=== PATIENT | female | born 1945 | race Two or more races ===

== ENCOUNTER 2019-05-29 18:02 | Inpatient (IN) | payer BC, MEDICARE ==
[~2019-05-29] VITALS: Ht 160 cm; Wt 93.4 kg
[~2019-05-29 18:02] MED LIST: ATOR20TA PO; CAPT1TAB7 PO; GLIP10TA10 PO; METF-414 PO
[2019-05-29] MEDS ORDERED: SODIUM CHLORIDE 0.9% 1,000 ML IV ONE (18:10)
[2019-05-29 18:36] LABS: BASOPHILS % 0.4 % (0.0-2.0); EOSINOPHILS % 0.5 % (0.0-5.0); HEMATOCRIT. 34.8 % (36.0-48.0); HEMOGLOBIN. 11.9 g/dL (12.0-16.0); LYMPHOCYTES % 17.2 % (20.0-50.0); MEAN CORPUSCULAR HEMOGLOBIN 26.3 pg (28.0-32.0); MEAN PLATELET VOLUME 9.4 fl (7.4-10.4); MONOCYTES % 14.1 % (2.0-8.0); NEUTROPHILS % 67.8 % (40.0-76.0); PLATELET 146 x1000/uL (130-400); RED BLOOD CELL COUNT 4.52 mill/uL (4.2-5.4); RED CELL DISTRIBUTION WIDTH 13.9 % (11.6-14.6)
[2019-05-29 18:44] LABS: CHLORIDE 91 mEq/L (98-107)
[2019-05-29 18:50] LABS: INR 1.1; PARTIAL THROMBOPLASTIN TIME 28.7 sec (23.4-31.0); PROTHROMBIN TIME 10.9 sec (9.6-11.0)
[2019-05-29 18:51] LABS: ETHANOL BLOOD < 10 mg/dL
[2019-05-29 18:54] LABS: LDL CHOLESTEROL 128 mg/dL (5-100)
[2019-05-29] MEDS ORDERED: ATORVASTATIN CALCIUM 40MG TABLET PO STA (20:13)
[2019-05-29] MEDS ORDERED: ASPIRIN 81MG TABLET PO ONE ×2 (20:15→22:12)
[2019-05-29] MEDS ORDERED: IOHEXOL-350 100 ML BOTTLE ONE (21:18)
[2019-05-29] MEDS ORDERED: DOCUSATE SODIUM 100MG CAPSULE PO PRN (22:30)
[2019-05-29] MEDS ORDERED: NITROGLYCERIN 0.4MG TABLET SL SL PRN (22:30)
[2019-05-29] MEDS ORDERED: MAGNESIUM/ALUMINUM HYDROXIDE/SIMETHICONE 30ML UDC PO PRN (22:30)
[2019-05-29] MEDS ORDERED: CLONIDINE 0.1MG TABLET PO PRN (22:30)
[2019-05-29] MEDS ORDERED: ACETAMINOPHEN 325MG TABLET PO PRN (22:30)
[2019-05-29] MEDS ORDERED: IPRATROPIUM/ALBUTEROL 0.5-3(2.5)MG/3ML NEB NEB PRN (22:30)
[2019-05-29] MEDS ORDERED: GUAIFENESIN 200MG/10ML SUGAR FREE UDC PO PRN (22:30)
[2019-05-29] MEDS ORDERED: DEXTROSE 50% WATER 50ML SYRINGE IV PRN (22:30)
[2019-05-29 23:43] LABS: T4 FREE 1.51 ng/dL (0.76-1.46)
[2019-05-29] MEDS ORDERED: POTASSIUM CHLORIDE 20MEQ TABLET SR PO SCH (23:51)
[2019-05-30 00:23] LABS: FOLIC ACID (FOLATE) SERUM 18.7 ng/mL (>5.38)
[2019-05-30] MEDS: ONDANSETRON HCL 4MG/2ML INJ IV PRN ×3 (00:36→13:37)
[2019-05-30] MEDS: TRAMADOL 50MG TABLET PO PRN ×2 (00:36→18:50)
[2019-05-30 01:30] VITALS: BP 143/45
[2019-05-30] MEDS: SODIUM CHLORIDE 0.9% 1,000 ML IV SCH ×2 (02:26→14:04)
[2019-05-30 04:00] VITALS: BP 147/67
[2019-05-30] MEDS: BLOOD SUGAR DIAGNOSTIC STRIP TEST SCH ×4 (06:14→21:00)
[2019-05-30] MEDS: INSULIN LISPRO 100 UNITS/ML SUBCUT SCH ×4 (06:27→22:30)
[2019-05-30 07:44] LABS: BASOPHILS % 0.6 % (0.0-2.0); EOSINOPHILS % 0.7 % (0.0-5.0); HEMATOCRIT. 35.2 % (36.0-48.0); HEMOGLOBIN. 12.2 g/dL (12.0-16.0); LYMPHOCYTES % 15.9 % (20.0-50.0); MEAN CORPUSCULAR HEMOGLOBIN 26.5 pg (28.0-32.0); MEAN CORPUSCULAR VOLUME 76.5 fL (81.0-99.0); MEAN PLATELET VOLUME 8.9 fl (7.4-10.4); MONOCYTES % 11.7 % (2.0-8.0); NEUTROPHILS % 71.1 % (40.0-76.0); PLATELET 142 x1000/uL (130-400); RED CELL DISTRIBUTION WIDTH 14.1 % (11.6-14.6)
[2019-05-30 07:52] LABS: CHLORIDE 92 mEq/L (98-107)
[2019-05-30 08:00] VITALS: BP 145/76
[2019-05-30 08:03] LABS: CREATINE KINASE 79 IU/L (26-192)
[2019-05-30 08:07] LABS: CREATINE KINASE MB FRACTION < 1.0 ng/mL (0.5-3.6)
[2019-05-30] MEDS ORDERED: FAMOTIDINE 20MG TABLET PO SCH (09:00)
[2019-05-30] MEDS: KETOROLAC 15MG/ML VIAL IV PRN ×2 (09:25→13:39)
[2019-05-30] MEDS: ENOXAPARIN 40MG/0.4ML SYR SUBCUT SCH (09:28)
[2019-05-30] MEDS: FAMOTIDINE 20MG TABLET PO SCH (10:13)
[2019-05-30] MEDS: CLOPIDOGREL 75MG TABLET PO SCH (10:14)
[2019-05-30] MEDS: ACYCLOVIR INJ 750 MG in DEXT 5% WATER 125 ML IV SCH ×2 (11:50→22:17)
[2019-05-30 12:00] VITALS: BP 144/54
[2019-05-30] MEDS ORDERED: PNEUMOCOCCAL 23-VAL P-SAC VAC 0.5 ML IM ONE (12:00)
[2019-05-30] MEDS: METOCLOPRAMIDE 10MG/10 ML UDC PO SCH ×3 (12:00→22:23)
[2019-05-30] MEDS ORDERED: INFLUENZA VIRUS VACCINE(AFLURIA) 0.5ML SYR IM ONE (12:00)
[2019-05-30] MEDS ORDERED: POTASSIUM CHLORIDE 20MEQ TABLET SR PO NR (15:30)
[2019-05-30 16:00] VITALS: BP 116/79
[2019-05-30 16:33] LABS: CREATINE KINASE 88 IU/L (26-192)
[2019-05-30 16:35] LABS: CREATINE KINASE MB FRACTION 1.1 ng/mL (0.5-3.6)
[2019-05-30 20:00] VITALS: BP 199/79
[2019-05-30] MEDS ORDERED: ATORVASTATIN CALCIUM 10MG TABLET PO SCH (21:00)
[2019-05-30] MEDS: AMLODIPINE 2.5MG TABLET PO SCH (22:21)
[2019-05-30] MEDS: ZOLPIDEM TARTRATE 5MG TABLET PO PRN (22:44)
[2019-05-31] VITALS: BP 147/96
[2019-05-31] MEDS: SODIUM CHLORIDE 0.9% 1,000 ML IV SCH ×2 (02:35→16:44)
[2019-05-31 04:00] VITALS: BP 129/87
[2019-05-31] MEDS: METOCLOPRAMIDE 10MG/10 ML UDC PO SCH ×4 (06:16→21:46)
[2019-05-31] MEDS: BLOOD SUGAR DIAGNOSTIC STRIP TEST SCH ×4 (06:45→21:37)
[2019-05-31 07:01] LABS: BASOPHILS % 0.5 % (0.0-2.0); EOSINOPHILS % 1.2 % (0.0-5.0); HEMATOCRIT. 33.7 % (36.0-48.0); HEMOGLOBIN. 11.5 g/dL (12.0-16.0); LYMPHOCYTES % 16.7 % (20.0-50.0); MEAN CORPUSCULAR HEMOGLOBIN 26.6 pg (28.0-32.0); MONOCYTES % 14.1 % (2.0-8.0); NEUTROPHILS % 67.5 % (40.0-76.0); RED BLOOD CELL COUNT 4.32 mill/uL (4.2-5.4); RED CELL DISTRIBUTION WIDTH 13.8 % (11.6-14.6)
[2019-05-31 07:32] LABS: CHLORIDE 95 mEq/L (98-107)
[2019-05-31 07:40] LABS: CREATINE KINASE 65 IU/L (26-192)
[2019-05-31 07:43] LABS: CREATINE KINASE MB FRACTION < 1.0 ng/mL (0.5-3.6)
[2019-05-31] MEDS: INSULIN LISPRO 100 UNITS/ML SUBCUT SCH ×4 (08:18→22:06)
[2019-05-31] MEDS: CLOPIDOGREL 75MG TABLET PO SCH (09:51)
[2019-05-31] MEDS: FAMOTIDINE 20MG TABLET PO SCH (09:52)
[2019-05-31] MEDS: AMLODIPINE 2.5MG TABLET PO SCH ×2 (09:52→21:47)
[2019-05-31] MEDS: ENOXAPARIN 40MG/0.4ML SYR SUBCUT SCH (09:53)
[2019-05-31] MEDS: ACYCLOVIR INJ 750 MG in DEXT 5% WATER 125 ML IV SCH ×2 (11:53→21:46)
[2019-05-31 12:00] VITALS: BP 111/55
[2019-05-31 13:21] LABS: PLATELET 115 x1000/uL (130-400)
[2019-05-31] MEDS ORDERED: POTASSIUM CHLORIDE 20MEQ TABLET SR PO SCH (14:30)
[2019-05-31 16:00] VITALS: BP 159/74
[2019-05-31] MEDS: ONDANSETRON HCL 4MG/2ML INJ IV PRN (16:53)
[2019-05-31 20:00] VITALS: BP 170/75
[2019-05-31] MEDS ORDERED: ATORVASTATIN CALCIUM 20MG TABLET PO SCH (21:00)
[2019-05-31] MEDS: ZOLPIDEM TARTRATE 5MG TABLET PO PRN (21:47)
[2019-06-01] VITALS: BP 137/89
[2019-06-01 04:00] VITALS: BP 139/61
[2019-06-01] MEDS: BLOOD SUGAR DIAGNOSTIC STRIP TEST SCH ×2 (06:28→12:02)
[2019-06-01] MEDS: METOCLOPRAMIDE 10MG/10 ML UDC PO SCH ×2 (06:33→11:52)
[2019-06-01] MEDS: SODIUM CHLORIDE 0.9% 1,000 ML IV SCH (06:34)
[2019-06-01] MEDS: INSULIN LISPRO 100 UNITS/ML SUBCUT SCH ×2 (06:40→12:48)
[2019-06-01] MEDS: TRAMADOL 50MG TABLET PO PRN (07:04)
[2019-06-01 07:50] LABS: CHLORIDE 97 mEq/L (98-107)
[2019-06-01 08:00] VITALS: BP 146/69
[2019-06-01 08:13] LABS: HEMATOCRIT. 31.2 % (36.0-48.0); HEMOGLOBIN. 10.9 g/dL (12.0-16.0); MEAN CORPUSCULAR HEMOGLOBIN 26.8 pg (28.0-32.0); MEAN CORPUSCULAR VOLUME 76.9 fL (81.0-99.0); MEAN PLATELET VOLUME 9.4 fl (7.4-10.4); PLATELET 131 x1000/uL (130-400); RED BLOOD CELL COUNT 4.06 mill/uL (4.2-5.4); RED CELL DISTRIBUTION WIDTH 13.6 % (11.6-14.6)
[2019-06-01] MEDS ORDERED: ENOXAPARIN 30MG/0.3ML SYR SUBCUT SCH (09:00)
[2019-06-01] MEDS: FAMOTIDINE 20MG TABLET PO SCH (09:49)
[2019-06-01] MEDS: CLOPIDOGREL 75MG TABLET PO SCH (09:50)
[2019-06-01] MEDS: AMLODIPINE 2.5MG TABLET PO SCH (09:50)
[2019-06-01] MEDS: ACYCLOVIR INJ 750 MG in DEXT 5% WATER 125 ML IV SCH (10:38)
[2019-06-01 12:00] VITALS: BP 112/58
[2019-06-01 12:52] VITALS: BP 146/69
[2019-06-01 16:40] LABS: PLATELET ESTIMATE NORMAL
== END 2019-06-01 13:28 | disposition home or self-care (01) | DRG 640 ==
LOC: ER 18:02 → SUPCPDRO 22:29 → 5WST 22:52 → ENRESERV 23:56 → 5WST 05-30 03:30
PROVIDERS: ADMIT Internal Medicine; ATTEND Internal Medicine
DX: E87.6 Hypokalemia (principal); N17.0 Acute kidney failure with tubular necrosis; G45.9 Transient cerebral ischemic attack, unspecified; E44.1 Mild protein-calorie malnutrition; E87.1 Hypo-osmolality and hyponatremia; E11.65 Type 2 diabetes mellitus with hyperglycemia; E78.5 Hyperlipidemia, unspecified; I10 Essential (primary) hypertension; R10.9 Unspecified abdominal pain; E78.00 Pure hypercholesterolemia, unspecified; I25.10 Atherosclerotic heart disease of native coronary artery without angina pectoris; M19.90 Unspecified osteoarthritis, unspecified site; Z79.4 Long term (current) use of insulin; Z86.73 Personal history of transient ischemic attack (TIA), and cerebral infarction without residual deficits; Z68.36 Body mass index [BMI] 36.0-36.9, adult; Z88.0 Allergy status to penicillin; Z90.49 Acquired absence of other specified parts of digestive tract; Z79.84 Long term (current) use of oral hypoglycemic drugs
CPT/HCPCS: 36415; 70496; 70498; 70551; 71045; 74177; 80061; 80320; 82550; 82553; 82607; 82746; 82962; 83036; 83540; 83550; 83721; 83735; 83880; 84439; 84443; 84484; 90686; 90732; 93005; 93306; 93970; 96360; 96372; 97162; 97166; 99291; A6261; C1893; J0133; J1650; J1815; J1885; J2405; J7030; J7060; J8597; Q9967; G0480

== ENCOUNTER 2019-06-04 13:43 | Inpatient (IN) | payer BC, MEDICARE ==
[~2019-06-04] VITALS: Ht 162.6 cm; Wt 75.0 kg
[2019-06-04] MEDS ORDERED: HYDROCODONE/ACETAMINOPHEN 5/325MG TABLET PO STA (15:02)
[2019-06-04] MEDS ORDERED: VALACYCLOVIR HCL 500MG TABLET PO STA (15:02)
[2019-06-04 15:19] LABS: CHLORIDE 95 mEq/L (98-107)
[2019-06-04 15:20] LABS: BASOPHILS % 0.8 % (0.0-2.0); EOSINOPHILS % 0.1 % (0.0-5.0); HEMATOCRIT. 35.5 % (36.0-48.0); HEMOGLOBIN. 12.3 g/dL (12.0-16.0); LYMPHOCYTES % 24.6 % (20.0-50.0); MEAN CORPUSCULAR HEMOGLOBIN 26.6 pg (28.0-32.0); MEAN PLATELET VOLUME 8.7 fl (7.4-10.4); MONOCYTES % 8.5 % (2.0-8.0); PLATELET 207 x1000/uL (130-400); RED BLOOD CELL COUNT 4.61 mill/uL (4.2-5.4); RED CELL DISTRIBUTION WIDTH 13.5 % (11.6-14.6)
[2019-06-04 16:36] LABS: CLARITY URINE TURBID (CLEAR); COLOR URINE YELLOW (YELLOW); KETONES URINE 1+ (NEGATIVE); LEUKOCYTE ESTERASE URINE 3+ (NEGATIVE); NITRITE URINE NEGATIVE (NEGATIVE); OCCULT BLOOD URINE TRACE (NEGATIVE); PROTEIN URINE 1+ (NEGATIVE); SPECIFIC GRAVITY URINE 1.008 (1.005-1.030); UROBILINOGEN URINE 0.2 E.U./dL (0.2-1.0)
[2019-06-04] MEDS ORDERED: LEVOFLOXACIN 750MG PREMIX 150 ML IV ONE (17:45)
[2019-06-04] MEDS ORDERED: MAGNESIUM/ALUMINUM HYDROXIDE/SIMETHICONE 30ML UDC PO PRN (19:30)
[2019-06-04] MEDS ORDERED: IPRATROPIUM/ALBUTEROL 0.5-3(2.5)MG/3ML NEB NEB PRN (19:30)
[2019-06-04] MEDS ORDERED: DEXTROSE 50% WATER 50ML SYRINGE IV PRN (19:30)
[2019-06-04] MEDS ORDERED: GUAIFENESIN 200MG/10ML SUGAR FREE UDC PO PRN (19:30)
[2019-06-04] MEDS ORDERED: DOCUSATE SODIUM 100MG CAPSULE PO PRN (19:30)
[2019-06-04] MEDS ORDERED: NITROGLYCERIN 0.4MG TABLET SL SL PRN (19:30)
[2019-06-04] MEDS: SODIUM CHLORIDE 0.9% 1,000 ML IV SCH (19:31)
[2019-06-04] MEDS: INSULIN LISPRO 100 UNITS/ML SUBCUT SCH (21:00)
[2019-06-04] MEDS: BLOOD SUGAR DIAGNOSTIC STRIP TEST SCH (21:00)
[2019-06-04] MEDS ORDERED: VALACYCLOVIR HCL 500MG TABLET PO SCH (22:00)
[2019-06-04] MEDS: ONDANSETRON HCL 4MG/2ML INJ IV PRN (23:19)
[2019-06-04] MEDS: TRAMADOL 50MG TABLET PO PRN (23:20)
[2019-06-04] MEDS: SUCRALFATE 1 G/10 ML UDC PO SCH (23:37)
[2019-06-05] VITALS (7 sets, daily range): BP systolic 138–178; BP diastolic 61–79
[2019-06-05] MEDS: VANCOMYCIN 1 G PREMIX 200 ML IV SCH (01:44)
[2019-06-05] MEDS: VALACYCLOVIR HCL 500MG TABLET PO SCH ×2 (06:00→13:16)
[2019-06-05] MEDS: SUCRALFATE 1 G/10 ML UDC PO SCH ×4 (07:55→21:09)
[2019-06-05] MEDS: BLOOD SUGAR DIAGNOSTIC STRIP TEST SCH ×4 (07:55→21:25)
[2019-06-05] MEDS: FAMOTIDINE 20MG TABLET PO SCH (08:20)
[2019-06-05] MEDS: METOCLOPRAMIDE 10MG/10 ML UDC PO SCH ×3 (08:20→16:57)
[2019-06-05] MEDS: ENOXAPARIN 40MG/0.4ML SYR SUBCUT SCH (08:20)
[2019-06-05] MEDS: METOPROLOL TARTRATE 25MG TABLET PO SCH ×2 (08:21→21:09)
[2019-06-05] MEDS: ASPIRIN 325MG EC TABLET PO SCH (08:21)
[2019-06-05] MEDS: TRAMADOL 50MG TABLET PO PRN (08:21)
[2019-06-05] MEDS: INSULIN LISPRO 100 UNITS/ML SUBCUT SCH ×4 (08:31→21:00)
[2019-06-05] MEDS: SODIUM CHLORIDE 0.9% 1,000 ML IV SCH (10:10)
[2019-06-05] MEDS: ONDANSETRON HCL 4MG/2ML INJ IV PRN ×2 (10:10→12:36)
[2019-06-05] MEDS: ACETAMINOPHEN 325MG TABLET PO PRN (15:26)
[2019-06-05] MEDS ORDERED: PROCHLORPERAZINE 10MG/2ML VIAL IM NR (18:00)
[2019-06-05] MEDS ORDERED: LEVOFLOXACIN 250MG PREMIX 50 ML IV SCH (18:00)
[2019-06-05] MEDS: LEVOFLOXACIN 250MG PREMIX 50 ML IV SCH (21:00)
[2019-06-06] VITALS: BP 162/70
[2019-06-06] MEDS: SODIUM CHLORIDE 0.9% 1,000 ML IV SCH (00:05)
[2019-06-06] MEDS: VALACYCLOVIR HCL 500MG TABLET PO SCH ×4 (01:46→21:11)
[2019-06-06] MEDS: VANCOMYCIN 1 G PREMIX 200 ML IV SCH (01:47)
[2019-06-06] MEDS: CLONIDINE 0.1MG TABLET PO PRN (01:47)
[2019-06-06 04:00] VITALS: BP 137/84
[2019-06-06] MEDS: TRAMADOL 50MG TABLET PO PRN ×2 (04:03→18:19)
[2019-06-06] MEDS: METOCLOPRAMIDE 10MG/10 ML UDC PO SCH ×3 (06:45→18:31)
[2019-06-06] MEDS: SUCRALFATE 1 G/10 ML UDC PO SCH ×4 (06:45→21:12)
[2019-06-06] MEDS: BLOOD SUGAR DIAGNOSTIC STRIP TEST SCH ×4 (06:46→21:30)
[2019-06-06 08:00] VITALS: BP 169/76
[2019-06-06] MEDS: METOPROLOL TARTRATE 25MG TABLET PO SCH ×2 (09:13→21:12)
[2019-06-06] MEDS: FAMOTIDINE 20MG TABLET PO SCH (09:13)
[2019-06-06] MEDS: ASPIRIN 325MG EC TABLET PO SCH (09:13)
[2019-06-06] MEDS: ENOXAPARIN 40MG/0.4ML SYR SUBCUT SCH (09:14)
[2019-06-06] MEDS: INSULIN LISPRO 100 UNITS/ML SUBCUT SCH ×4 (09:48→21:50)
[2019-06-06] MEDS ORDERED: ERYTHROMYCIN 250MG CAPSULE DR PO SCH (11:30)
[2019-06-06 12:00] VITALS: BP 133/54
[2019-06-06 16:00] VITALS: BP 149/67
[2019-06-06 20:00] VITALS: BP 141/67
[2019-06-06] MEDS: LEVOFLOXACIN 250MG PREMIX 50 ML IV SCH (21:00)
[2019-06-06] MEDS: ZOLPIDEM TARTRATE 5MG TABLET PO PRN (21:12)
[2019-06-06] MEDS: ERYTHROMYCIN 250MG CAPSULE DR PO SCH (21:12)
[2019-06-07] VITALS: BP 136/69
[2019-06-07] MEDS: LEVOFLOXACIN 250MG PREMIX 50 ML IV SCH (02:54)
[2019-06-07] MEDS: SODIUM CHLORIDE 0.9% 1,000 ML IV SCH ×2 (02:55→21:29)
[2019-06-07 04:00] VITALS: BP 144/75
[2019-06-07] MEDS: VANCOMYCIN 1 G PREMIX 200 ML IV SCH ×2 (04:12→18:00)
[2019-06-07] MEDS: METOCLOPRAMIDE 10MG/10 ML UDC PO SCH ×3 (06:17→17:41)
[2019-06-07] MEDS: ERYTHROMYCIN 250MG CAPSULE DR PO SCH (06:17)
[2019-06-07] MEDS: SUCRALFATE 1 G/10 ML UDC PO SCH ×4 (06:17→20:54)
[2019-06-07] MEDS: BLOOD SUGAR DIAGNOSTIC STRIP TEST SCH ×4 (06:27→21:00)
[2019-06-07] MEDS: VALACYCLOVIR HCL 500MG TABLET PO SCH ×3 (06:44→21:07)
[2019-06-07 08:00] VITALS: BP 141/77
[2019-06-07] MEDS: ASPIRIN 325MG EC TABLET PO SCH (09:07)
[2019-06-07] MEDS: METOPROLOL TARTRATE 25MG TABLET PO SCH ×2 (09:08→20:54)
[2019-06-07] MEDS: FAMOTIDINE 20MG TABLET PO SCH (09:08)
[2019-06-07] MEDS: TRAMADOL 50MG TABLET PO PRN ×2 (09:08→21:07)
[2019-06-07] MEDS: ENOXAPARIN 40MG/0.4ML SYR SUBCUT SCH (09:09)
[2019-06-07] MEDS: INSULIN LISPRO 100 UNITS/ML SUBCUT SCH ×4 (09:22→21:45)
[2019-06-07 12:00] VITALS: BP 180/71
[2019-06-07] MEDS: ONDANSETRON HCL 4MG/2ML INJ IV PRN ×2 (13:11→17:41)
[2019-06-07] MEDS: CLONIDINE 0.1MG TABLET PO PRN (14:14)
[2019-06-07 15:58] LABS: BASOPHILS % 0.6 % (0.0-2.0); EOSINOPHILS % 0.6 % (0.0-5.0); HEMATOCRIT. 35.4 % (36.0-48.0); HEMOGLOBIN. 12.2 g/dL (12.0-16.0); LYMPHOCYTES % 22.3 % (20.0-50.0); MEAN CORPUSCULAR HEMOGLOBIN 26.8 pg (28.0-32.0); MEAN CORPUSCULAR VOLUME 77.6 fL (81.0-99.0); MEAN PLATELET VOLUME 8.4 fl (7.4-10.4); MONOCYTES % 8.5 % (2.0-8.0); PLATELET 276 x1000/uL (130-400); RED BLOOD CELL COUNT 4.56 mill/uL (4.2-5.4); RED CELL DISTRIBUTION WIDTH 13.4 % (11.6-14.6)
[2019-06-07 16:00] VITALS: BP 173/83
[2019-06-07 16:15] LABS: CHLORIDE 98 mEq/L (98-107)
[2019-06-07 20:00] VITALS: BP 185/84
[2019-06-07] MEDS: ZOLPIDEM TARTRATE 5MG TABLET PO PRN (21:06)
[2019-06-07] MEDS ORDERED: POTASSIUM CHLORIDE 20MEQ/PACKET PO SCH (22:00)
[2019-06-08] VITALS: BP 152/80
[2019-06-08] MEDS ORDERED: KCL 20MEQ/100ML PREMIX 100 ML IV SCH
[2019-06-08] MEDS: CLONIDINE 0.1MG TABLET PO PRN ×3 (00:48→23:28)
[2019-06-08 04:00] VITALS: BP 168/71
[2019-06-08] MEDS: METOCLOPRAMIDE 10MG/10 ML UDC PO SCH ×3 (06:00→16:27)
[2019-06-08] MEDS: SUCRALFATE 1 G/10 ML UDC PO SCH ×4 (06:00→20:02)
[2019-06-08] MEDS: TRAMADOL 50MG TABLET PO PRN ×3 (06:01→23:29)
[2019-06-08] MEDS: BLOOD SUGAR DIAGNOSTIC STRIP TEST SCH ×4 (07:20→21:00)
[2019-06-08] MEDS: INSULIN LISPRO 100 UNITS/ML SUBCUT SCH ×4 (07:30→20:34)
[2019-06-08] MEDS: FAMOTIDINE 20MG TABLET PO SCH (10:14)
[2019-06-08] MEDS: LEVOFLOXACIN 250MG TABLET PO SCH (10:14)
[2019-06-08] MEDS: ASPIRIN 325MG EC TABLET PO SCH (10:14)
[2019-06-08] MEDS: ENOXAPARIN 40MG/0.4ML SYR SUBCUT SCH (10:14)
[2019-06-08] MEDS: VALACYCLOVIR HCL 500MG TABLET PO SCH ×3 (10:15→20:02)
[2019-06-08 10:19] LABS: CHLORIDE 100 mEq/L (98-107)
[2019-06-08] MEDS: METOPROLOL TARTRATE 25MG TABLET PO SCH ×2 (10:41→20:03)
[2019-06-08 12:00] VITALS: BP 177/73
[2019-06-08] MEDS ORDERED: POTASSIUM CHLORIDE 20MEQ/PACKET PO NR (12:00)
[2019-06-08] MEDS: VANCOMYCIN 1 G PREMIX 200 ML IV SCH (12:38)
[2019-06-08] MEDS ORDERED: KCL 20MEQ/100ML PREMIX 100 ML IV NR (13:00)
[2019-06-08 16:00] VITALS: BP 202/83
[2019-06-08] MEDS: SODIUM CHLORIDE 0.9% 1,000 ML IV SCH (16:29)
[2019-06-08 16:45] VITALS: BP 180/76
[2019-06-08 20:00] VITALS: BP 189/82
[2019-06-08] MEDS: ONDANSETRON HCL 4MG/2ML INJ IV PRN (20:19)
[2019-06-08] MEDS: ZOLPIDEM TARTRATE 5MG TABLET PO PRN (23:28)
[2019-06-09] VITALS: BP 158/82
[2019-06-09 04:00] VITALS: BP 162/64
[2019-06-09] MEDS: METOCLOPRAMIDE 10MG/10 ML UDC PO SCH ×3 (05:55→18:30)
[2019-06-09] MEDS: VANCOMYCIN 1 G PREMIX 200 ML IV SCH (05:55)
[2019-06-09] MEDS: VALACYCLOVIR HCL 500MG TABLET PO SCH ×3 (05:56→21:34)
[2019-06-09] MEDS: SUCRALFATE 1 G/10 ML UDC PO SCH ×4 (05:56→20:29)
[2019-06-09] MEDS: CLONIDINE 0.1MG TABLET PO PRN ×2 (05:56→15:56)
[2019-06-09 06:42] LABS: CHLORIDE 100 mEq/L (98-107)
[2019-06-09] MEDS: INSULIN LISPRO 100 UNITS/ML SUBCUT SCH ×4 (06:48→21:08)
[2019-06-09] MEDS: BLOOD SUGAR DIAGNOSTIC STRIP TEST SCH ×4 (06:48→20:29)
[2019-06-09 08:00] VITALS: BP 151/73
[2019-06-09] MEDS: ASPIRIN 325MG EC TABLET PO SCH (08:24)
[2019-06-09] MEDS: FAMOTIDINE 20MG TABLET PO SCH (08:24)
[2019-06-09] MEDS: LEVOFLOXACIN 250MG TABLET PO SCH (08:25)
[2019-06-09] MEDS: METOPROLOL TARTRATE 25MG TABLET PO SCH ×2 (08:25→20:29)
[2019-06-09] MEDS: ENOXAPARIN 40MG/0.4ML SYR SUBCUT SCH (08:27)
[2019-06-09] MEDS ORDERED: POTASSIUM CHLORIDE 20MEQ TABLET SR PO SCH (09:00)
[2019-06-09 12:00] VITALS: BP 148/70
[2019-06-09] MEDS: ERYTHROMYCIN 250MG CAPSULE DR PO SCH ×2 (14:30→21:34)
[2019-06-09 16:00] VITALS: BP 228/92
[2019-06-09] MEDS: AMLODIPINE 10MG TABLET PO SCH (18:30)
[2019-06-09 20:00] VITALS: BP 166/82
[2019-06-09] MEDS: ONDANSETRON HCL 4MG/2ML INJ IV PRN (20:52)
[2019-06-09] MEDS: ACETAMINOPHEN 325MG TABLET PO PRN (20:52)
[2019-06-09] MEDS: HYDRALAZINE HCL 50MG TABLET PO SCH (21:38)
[2019-06-09] MEDS ORDERED: ZOLPIDEM TARTRATE 5MG TABLET PO PRN ×2 (22:00)
[2019-06-10] VITALS: BP 141/62
[2019-06-10] MEDS: VANCOMYCIN 1 G PREMIX 200 ML IV SCH (00:38)
[2019-06-10 04:00] VITALS: BP 143/71
[2019-06-10] MEDS: VALACYCLOVIR HCL 500MG TABLET PO SCH (06:18)
[2019-06-10] MEDS: HYDRALAZINE HCL 50MG TABLET PO SCH (06:18)
[2019-06-10] MEDS: ERYTHROMYCIN 250MG CAPSULE DR PO SCH (06:18)
[2019-06-10] MEDS: SUCRALFATE 1 G/10 ML UDC PO SCH (06:22)
[2019-06-10] MEDS: METOCLOPRAMIDE 10MG/10 ML UDC PO SCH (06:22)
[2019-06-10] MEDS: BLOOD SUGAR DIAGNOSTIC STRIP TEST SCH (07:14)
[2019-06-10] MEDS: INSULIN LISPRO 100 UNITS/ML SUBCUT SCH (07:50)
[2019-06-10 08:00] VITALS: BP 133/47
[2019-06-10] MEDS ORDERED: MULTIVITAMINS,THER W-MINERALS TABLET PO SCH (09:00)
[2019-06-10] MEDS: METOPROLOL TARTRATE 25MG TABLET PO SCH (09:05)
[2019-06-10] MEDS: LEVOFLOXACIN 250MG TABLET PO SCH (09:05)
[2019-06-10] MEDS: ASPIRIN 325MG EC TABLET PO SCH (09:05)
[2019-06-10] MEDS: FAMOTIDINE 20MG TABLET PO SCH (09:06)
[2019-06-10] MEDS: ENOXAPARIN 40MG/0.4ML SYR SUBCUT SCH (09:06)
[2019-06-10] MEDS: AMLODIPINE 10MG TABLET PO SCH (09:06)
[2019-06-10] MEDS: ONDANSETRON HCL 4MG/2ML INJ IV PRN (09:16)
[2019-06-10] MEDS: ACETAMINOPHEN 325MG TABLET PO PRN (10:20)
== END 2019-06-10 11:14 | disposition home health service (06) | DRG 74 ==
LOC: ER 13:43 → EDBEDREQ 17:51 → 6EST 19:17 → EDBEDREQTM 19:35 → EDBEDREQ 19:35 → ENRESERV 20:12 → 6EST 23:04
PROVIDERS: ADMIT Internal Medicine; ATTEND Internal Medicine
DX: E11.43 Type 2 diabetes mellitus with diabetic autonomic (poly)neuropathy (principal); L03.90 Cellulitis, unspecified; E87.1 Hypo-osmolality and hyponatremia; N39.0 Urinary tract infection, site not specified; E44.0 Moderate protein-calorie malnutrition; K31.84 Gastroparesis; B02.9 Zoster without complications; E11.65 Type 2 diabetes mellitus with hyperglycemia; E78.00 Pure hypercholesterolemia, unspecified; E66.9 Obesity, unspecified; N64.89 Other specified disorders of breast; I10 Essential (primary) hypertension; D63.8 Anemia in other chronic diseases classified elsewhere; Z91.11 Patient's noncompliance with dietary regimen; Z91.14 Patient's other noncompliance with medication regimen; Z79.4 Long term (current) use of insulin; Z79.899 Other long term (current) drug therapy; Z71.3 Dietary counseling and surveillance; Z88.0 Allergy status to penicillin; Z79.84 Long term (current) use of oral hypoglycemic drugs; Z68.28 Body mass index [BMI] 28.0-28.9, adult
CPT/HCPCS: 36415; 74176; 80048; 80053; 80202; 81003; 82962; 83036; 83735; 84134; 85025; 87077; 87186; 93005; 97162; 97166; 99285; C1893; J0780; J1650; J1815; J1956; J2405; J3370; J3480; J8597

== ENCOUNTER 2019-06-24 00:29 | Emergency (ER) | payer BC, MEDICARE ==
[~2019-06-24] VITALS: Ht 167.6 cm; Wt 91.0 kg
[2019-06-24] MEDS ORDERED: METOCLOPRAMIDE HCL 10MG/2ML VIAL IV ONE (01:30)
[2019-06-24 01:53] LABS: BASOPHILS % 0.5 % (0.0-2.0); EOSINOPHILS % 0.5 % (0.0-5.0); HEMOGLOBIN. 11.4 g/dL (12.0-16.0); LYMPHOCYTES % 14.8 % (20.0-50.0); MEAN CORPUSCULAR HEMOGLOBIN 27.4 pg (28.0-32.0); MEAN CORPUSCULAR VOLUME 79.4 fL (81.0-99.0); MEAN PLATELET VOLUME 7.8 fl (7.4-10.4); MONOCYTES % 9.4 % (2.0-8.0); NEUTROPHILS % 74.8 % (40.0-76.0); PLATELET 242 x1000/uL (130-400); RED BLOOD CELL COUNT 4.16 mill/uL (4.2-5.4); RED CELL DISTRIBUTION WIDTH 14.1 % (11.6-14.6)
[2019-06-24 01:56] LABS: CHLORIDE 99 mEq/L (98-107)
[2019-06-24 02:03] LABS: BETA HYDROXYBUTYRATE 4.7 mMol/L (0.0-0.3)
[2019-06-24] MEDS ORDERED: SODIUM CHLORIDE 0.9% 1,000 ML IV ONE (02:30)
[2019-06-24 02:44] LABS: CLARITY URINE CLOUDY (CLEAR); COLOR URINE DARK YELLOW (YELLOW); KETONES URINE 4+ (NEGATIVE); LEUKOCYTE ESTERASE URINE 3+ (NEGATIVE); NITRITE URINE NEGATIVE (NEGATIVE); OCCULT BLOOD URINE TRACE (NEGATIVE); PH URINE 5.5 (4.5-8.0); PROTEIN URINE 2+ (NEGATIVE); SPECIFIC GRAVITY URINE 1.015 (1.005-1.030)
[2019-06-24] MEDS ORDERED: DIPHENHYDRAMINE 50MG/ML VIAL IV SCH (02:45)
[2019-06-24] MEDS ORDERED: GABAPENTIN 300MG CAPSULE PO SCH (03:00)
[2019-06-24] MEDS ORDERED: CEFTRIAXONE 1 G PREMIX 50 ML IV SCH (04:00)
[2019-06-24] MEDS ORDERED: PROCHLORPERAZINE 10MG/2ML VIAL IM SCH (04:00)
[2019-06-24 05:25] VITALS: BP 176/67
== END 2019-06-24 05:31 | disposition home or self-care (01) ==
LOC: ER 00:29
DX: R11.2 Nausea with vomiting, unspecified (principal); N39.0 Urinary tract infection, site not specified; R10.9 Unspecified abdominal pain; E11.9 Type 2 diabetes mellitus without complications; I10 Essential (primary) hypertension; E78.00 Pure hypercholesterolemia, unspecified; Z88.0 Allergy status to penicillin; Z98.890 Other specified postprocedural states
CPT/HCPCS: 36415; 80053; 81003; 82010; 82962; 83690; 85025; 96361; 96365; 96372; 96375; 99283; J0696; J0780; J1200; J2765; J7030

== ENCOUNTER 2019-07-11 10:21 | Emergency (ER) | payer MEDICARE ==
[~2019-07-11] VITALS: Ht 157.5 cm; Wt 71.0 kg
[2019-07-11 12:28] LABS: BASOPHILS % 0.9 % (0.0-2.0); EOSINOPHILS % 0.4 % (0.0-5.0); HEMATOCRIT. 34.5 % (36.0-48.0); HEMOGLOBIN. 11.7 g/dL (12.0-16.0); LYMPHOCYTES % 24.5 % (20.0-50.0); MEAN CORPUSCULAR HEMOGLOBIN 27.2 pg (28.0-32.0); MEAN CORPUSCULAR VOLUME 80.1 fL (81.0-99.0); MEAN PLATELET VOLUME 8.5 fl (7.4-10.4); MONOCYTES % 8.2 % (2.0-8.0); PLATELET 194 x1000/uL (130-400); RED BLOOD CELL COUNT 4.31 mill/uL (4.2-5.4); RED CELL DISTRIBUTION WIDTH 16.1 % (11.6-14.6)
[2019-07-11 12:34] LABS: CHLORIDE 102 mEq/L (98-107)
[2019-07-11 12:35] LABS: PROTHROMBIN TIME 10.7 sec (9.6-11.0)
[2019-07-11 12:40] LABS: ETHANOL BLOOD < 10 mg/dL
[2019-07-11 12:41] LABS: LDL CHOLESTEROL 95 mg/dL (5-100)
[2019-07-11 13:06] LABS: CLARITY URINE CLOUDY (CLEAR); COLOR URINE YELLOW (YELLOW); KETONES URINE NEGATIVE (NEGATIVE); LEUKOCYTE ESTERASE URINE 2+ (NEGATIVE); NITRITE URINE NEGATIVE (NEGATIVE); OCCULT BLOOD URINE NEGATIVE (NEGATIVE); PH URINE 8.5 (4.5-8.0); PROTEIN URINE NEGATIVE (NEGATIVE); SPECIFIC GRAVITY URINE 1.018 (1.005-1.030); UROBILINOGEN URINE 0.2 E.U./dL (0.2-1.0)
[2019-07-11 13:37] LABS: *AMPHETAMINES SCREEN URINE NEGATIVE (NEGATIVE); *BARBITURATES SCREEN URINE NEGATIVE (NEGATIVE); *BENZODIAZEPINES SCREEN URINE NEGATIVE (NEGATIVE); *COCAINE SCREEN URINE NEGATIVE (NEGATIVE); METHADONE URINE SCREEN NEGATIVE (NEGATIVE)
[2019-07-11 13:38] LABS: CANNABINOID URINE SCREEN NEGATIVE (NEGATIVE); OPIATES URINE SCREEN NEGATIVE (NEGATIVE); PHENCYCLIDINE URINE SCREEN NEGATIVE (NEGATIVE)
[2019-07-11] MEDS ORDERED: IOHEXOL-350 100 ML BOTTLE ONE (14:03)
[2019-07-11] MEDS ORDERED: ONDANSETRON HCL 4MG/2ML INJ IV ONE (14:15)
[2019-07-11] MEDS ORDERED: SULFAMETHOXAZOLE/TRIMETHOPRIM 800/160MG TABLET PO ONE (15:30)
[2019-07-11 19:37] VITALS: BP 138/66
== END 2019-07-11 20:00 | disposition short-term general hospital (02) ==
LOC: ER 10:21 → CANBEDREQ 22:59
DX: R53.1 Weakness (principal); E11.9 Type 2 diabetes mellitus without complications; E78.00 Pure hypercholesterolemia, unspecified; I10 Essential (primary) hypertension; Z86.73 Personal history of transient ischemic attack (TIA), and cerebral infarction without residual deficits; Z79.899 Other long term (current) drug therapy; Z88.0 Allergy status to penicillin
CPT/HCPCS: 36415; 70450; 70496; 71045; 80053; 80305; 80320; 81003; 82962; 83721; 84484; 85025; 85610; 87086; 93005; 96374; 99285; J2405; Q9967; G0480

== ENCOUNTER 2019-08-07 01:58 | Emergency (ER) | payer MEDICARE ==
[~2019-08-07] VITALS: Ht 165.1 cm; Wt 56.0 kg
[2019-08-07] MEDS ORDERED: ONDANSETRON 4MG ODT PO ONE (04:15)
[2019-08-07] MEDS ORDERED: KETOROLAC 60MG/2ML VIAL IM ONE (04:15)
[2019-08-07] MEDS ORDERED: METHOCARBAMOL 750MG TABLET PO SCH (04:15)
[2019-08-07] MEDS ORDERED: MORPHINE SULFATE 10 MG/ML CPJ IV ONE (04:15)
[2019-08-07 06:20] VITALS: BP 182/83
== END 2019-08-07 06:39 | disposition home or self-care (01) ==
LOC: ER 01:58
DX: M62.830 Muscle spasm of back (principal); I10 Essential (primary) hypertension; E11.9 Type 2 diabetes mellitus without complications; Z79.84 Long term (current) use of oral hypoglycemic drugs; Z88.0 Allergy status to penicillin
CPT/HCPCS: 96372; 96374; 99283; J1885; J2270; Q0162

== ENCOUNTER 2020-09-09 14:12 | Inpatient (IN) | payer MEDICARE, MEDICAID ==
[~2020-09-09] VITALS: Ht 157.5 cm; Wt 78.0 kg
[2020-09-09] MEDS: ACETAMINOPHEN 650MG SUPP PR NR
[2020-09-09] MEDS ORDERED: SODIUM CHLORIDE 0.9% 1,000 ML IV ONE ×2 (14:45→21:00)
[2020-09-09] MEDS ORDERED: ASPIRIN 81MG TABLET PO ONE (14:45)
[2020-09-09] MEDS ORDERED: HALOPERIDOL LACTATE 5MG/ML VIAL IM ONE ×2 (15:00→21:45)
[2020-09-09 16:21] LABS: BASOPHILS % 0.5 % (0.0-2.0); EOSINOPHILS % 0.1 % (0.0-5.0); HEMATOCRIT. 38.7 % (36.0-48.0); HEMOGLOBIN. 13.1 g/dL (12.0-16.0); LYMPHOCYTES % 15.5 % (20.0-50.0); MEAN CORPUSCULAR HEMOGLOBIN 26.5 pg (28.0-32.0); MEAN CORPUSCULAR VOLUME 78.1 fL (81.0-99.0); MEAN PLATELET VOLUME 9.7 fl (7.4-10.4); MONOCYTES % 3.6 % (2.0-8.0); NEUTROPHILS % 80.3 % (40.0-76.0); PLATELET 203 x1000/uL (130-400); RED BLOOD CELL COUNT 4.95 mill/uL (4.2-5.4); RED CELL DISTRIBUTION WIDTH 13.9 % (11.6-14.6)
[2020-09-09 16:25] LABS: CHLORIDE 93 mEq/L (98-107)
[2020-09-09 16:27] LABS: CLARITY URINE CLEAR (CLEAR); COLOR URINE YELLOW (YELLOW); KETONES URINE TRACE (NEGATIVE); LEUKOCYTE ESTERASE URINE NEGATIVE (NEGATIVE); NITRITE URINE NEGATIVE (NEGATIVE); OCCULT BLOOD URINE TRACE (NEGATIVE); PROTEIN URINE 2+ (NEGATIVE); SPECIFIC GRAVITY URINE 1.024 (1.005-1.030); UROBILINOGEN URINE 0.2 E.U./dL (0.2-1.0)
[2020-09-09 16:28] LABS: PROTHROMBIN TIME 10.3 sec (9.6-11.0)
[2020-09-09 16:29] LABS: ETHANOL BLOOD < 10 mg/dL
[2020-09-09 16:32] LABS: LDL CHOLESTEROL 182 mg/dL (5-100)
[2020-09-09 16:40] LABS: *AMPHETAMINES SCREEN URINE NEGATIVE (NEGATIVE); *BARBITURATES SCREEN URINE NEGATIVE (NEGATIVE); *BENZODIAZEPINES SCREEN URINE NEGATIVE (NEGATIVE); *COCAINE SCREEN URINE NEGATIVE (NEGATIVE); METHADONE URINE SCREEN NEGATIVE (NEGATIVE)
[2020-09-09 16:41] LABS: CANNABINOID URINE SCREEN NEGATIVE (NEGATIVE); OPIATES URINE SCREEN NEGATIVE (NEGATIVE); PHENCYCLIDINE URINE SCREEN NEGATIVE (NEGATIVE)
[2020-09-09] MEDS ORDERED: LORAZEPAM 2MG/ML CPJ IV NR (17:15)
[2020-09-09] MEDS ORDERED: INSULIN REGULAR (HUMULIN R) 300UNITS/3ML VIAL IV NR (17:15)
[2020-09-09] MEDS ORDERED: SODIUM CHLORIDE 0.9% 1,000 ML IV NR (17:15)
[2020-09-09] MEDS ORDERED: LORAZEPAM 2MG/ML CPJ IV ONE (18:00)
[2020-09-09] MEDS ORDERED: SODIUM POLYSTYRENE SULFONATE 15 G/60 ML BOT PO NR (21:00)
[2020-09-09] MEDS ORDERED: SODIUM BICARBONATE 150 MEQ in DEXTROSE 5% WATER 1,000 ML IV SCH (21:45)
[2020-09-09] MEDS ORDERED: LEVOFLOXACIN 750MG PREMIX 150 ML IV NR (23:00)
[2020-09-09] MEDS ORDERED: DOXYCYCLINE HYCLATE 100 MG/VIAL IV ONE (23:00)
[2020-09-09] MEDS ORDERED: DOXYCYCLINE 100MG in DEXTROSE 5% WATER 100ML IV NR (23:00)
[2020-09-10] MEDS: ACETAMINOPHEN 650MG SUPP PR NR ×3 (03:42→04:10)
[2020-09-10] MEDS ORDERED: LORAZEPAM 2MG/ML CPJ IV NR (06:45)
[2020-09-10] MEDS ORDERED: INS NPH/REG HM 70-30 100 UNITS/ML 10ML VIAL (HUMULIN 70-30) SUBCUT NR (07:00)
[2020-09-10] MEDS ORDERED: LORAZEPAM 2MG/ML CPJ IV PRN (12:00)
[2020-09-10] MEDS ORDERED: ACETAMINOPHEN 325MG TABLET PO PRN (15:00)
[2020-09-10] MEDS ORDERED: ONDANSETRON HCL 4MG/2ML INJ IV PRN (15:00)
[2020-09-10] MEDS ORDERED: LORAZEPAM 0.5MG TABLET PO PRN (15:00)
[2020-09-10] MEDS ORDERED: CLONIDINE 0.1MG TABLET PO PRN (15:00)
[2020-09-10] MEDS ORDERED: CEFTRIAXONE 1 G PREMIX 50 ML IV SCH (15:15)
[2020-09-10] MEDS: SODIUM CHLORIDE 0.9% 1,000 ML IV SCH ×2 (16:30→23:30)
[2020-09-10] MEDS: LISINOPRIL 20MG TABLET PO SCH (16:30)
[2020-09-10] MEDS: ENOXAPARIN 40MG/0.4ML SYR SUBCUT SCH (16:31)
[2020-09-10] MEDS: LEVOFLOXACIN 500MG TABLET PO SCH (16:31)
[2020-09-10] MEDS: ASPIRIN 81MG TABLET PO SCH (16:33)
[2020-09-10 17:02] VITALS: BP 174/69
[2020-09-10] MEDS ORDERED: ATORVASTATIN CALCIUM 20MG TABLET PO SCH (18:00)
[2020-09-10] MEDS: ATORVASTATIN CALCIUM 40MG TABLET PO SCH (18:31)
[2020-09-10] MEDS ORDERED: DEXTROSE 50% WATER 50ML SYRINGE IV PRN (19:45)
[2020-09-10 20:00] VITALS: BP 121/49
[2020-09-10] MEDS: INSULIN LISPRO 100 UNITS/ML SUBCUT SCH (21:00)
[2020-09-10] MEDS: BLOOD SUGAR DIAGNOSTIC STRIP TEST SCH (21:16)
[2020-09-11] VITALS: BP 173/89
[2020-09-11 04:00] VITALS: BP 146/55
[2020-09-11] MEDS: BLOOD SUGAR DIAGNOSTIC STRIP TEST SCH ×4 (07:10→21:01)
[2020-09-11 08:00] VITALS: BP 139/69
[2020-09-11 08:07] LABS: BASOPHILS % 0.5 % (0.0-2.0); EOSINOPHILS % 0.5 % (0.0-5.0); HEMATOCRIT. 32.9 % (36.0-48.0); HEMOGLOBIN. 11.3 g/dL (12.0-16.0); LYMPHOCYTES % 27.2 % (20.0-50.0); MEAN CORPUSCULAR VOLUME 78.6 fL (81.0-99.0); MEAN PLATELET VOLUME 9.3 fl (7.4-10.4); MONOCYTES % 9.1 % (2.0-8.0); NEUTROPHILS % 62.7 % (40.0-76.0); PLATELET 173 x1000/uL (130-400); RED BLOOD CELL COUNT 4.18 mill/uL (4.2-5.4); RED CELL DISTRIBUTION WIDTH 13.8 % (11.6-14.6)
[2020-09-11 08:28] LABS: CHLORIDE 105 mEq/L (98-107)
[2020-09-11] MEDS: INSULIN LISPRO 100 UNITS/ML SUBCUT SCH ×4 (08:38→21:13)
[2020-09-11] MEDS: ASPIRIN 81MG TABLET PO SCH (08:38)
[2020-09-11] MEDS: LISINOPRIL 20MG TABLET PO SCH (08:39)
[2020-09-11] MEDS: LEVOFLOXACIN 500MG TABLET PO SCH (11:00)
[2020-09-11 16:00] VITALS: BP 126/76
[2020-09-11] MEDS: ENOXAPARIN 40MG/0.4ML SYR SUBCUT SCH (17:03)
[2020-09-11] MEDS: ATORVASTATIN CALCIUM 40MG TABLET PO SCH (18:27)
[2020-09-11 20:00] VITALS: BP 153/75
[2020-09-11] MEDS: SODIUM CHLORIDE 0.9% 1,000 ML IV SCH (21:01)
[2020-09-12] VITALS: BP 115/61
[2020-09-12 04:00] VITALS: BP 159/64
[2020-09-12] MEDS: BLOOD SUGAR DIAGNOSTIC STRIP TEST SCH ×3 (07:02→17:37)
[2020-09-12] MEDS: INSULIN LISPRO 100 UNITS/ML SUBCUT SCH ×3 (07:02→17:46)
[2020-09-12 08:00] VITALS: BP 170/75
[2020-09-12] MEDS: LISINOPRIL 20MG TABLET PO SCH (09:31)
[2020-09-12] MEDS: ASPIRIN 81MG TABLET PO SCH (09:31)
[2020-09-12] MEDS: LEVOFLOXACIN 500MG TABLET PO SCH (11:36)
[2020-09-12 12:00] VITALS: BP 145/50
[2020-09-12 12:33] LABS: BASOPHILS % 0.5 % (0.0-2.0); EOSINOPHILS % 0.3 % (0.0-5.0); HEMATOCRIT. 35.8 % (36.0-48.0); HEMOGLOBIN. 11.9 g/dL (12.0-16.0); LYMPHOCYTES % 14.8 % (20.0-50.0); MEAN CORPUSCULAR HEMOGLOBIN 26.4 pg (28.0-32.0); MEAN CORPUSCULAR VOLUME 79.7 fL (81.0-99.0); MEAN PLATELET VOLUME 9.3 fl (7.4-10.4); MONOCYTES % 6.5 % (2.0-8.0); NEUTROPHILS % 77.9 % (40.0-76.0); PLATELET 194 x1000/uL (130-400); RED CELL DISTRIBUTION WIDTH 13.4 % (11.6-14.6)
[2020-09-12 12:35] LABS: CHLORIDE 108 mEq/L (98-107)
[2020-09-12 12:45] LABS: LDL CHOLESTEROL 158 mg/dL (5-100)
[2020-09-12 12:47] LABS: HDL CHOLESTEROL 33 mg/dL (40-59); T4 FREE 1.18 ng/dL (0.76-1.46)
[2020-09-12] MEDS ORDERED: LIP40 MT (13:45)
[2020-09-12] MEDS ORDERED: GLIP10TA10 PO (13:45)
[2020-09-12] MEDS ORDERED: FAMO-135 PO (13:45)
[2020-09-12] MEDS ORDERED: ASPI-1497 MT (13:45)
[2020-09-12] MEDS ORDERED: BLOO-1465 MT (13:45)
[2020-09-12] MEDS ORDERED: LANC1COM2 MC (13:45)
[2020-09-12] MEDS ORDERED: INSU100I28 SQ (13:45)
[2020-09-12] MEDS ORDERED: METF-415 MT (13:45)
[2020-09-12] MEDS ORDERED: AMLO10TA4 MT (13:45)
[2020-09-12] MEDS: ENOXAPARIN 40MG/0.4ML SYR SUBCUT SCH (16:57)
[2020-09-12 17:16] VITALS: BP 166/64
[2020-09-12] MEDS: ATORVASTATIN CALCIUM 40MG TABLET PO SCH (18:00)
== END 2020-09-12 18:55 | disposition home health service (06) | DRG 64 ==
LOC: ER 14:28 → EDBEDREQ 22:39 → EDBEDREQTM 22:39 → MICUSO 22:55 → EDBEDREQ 23:05 → EDBEDREQSVC 23:05 → EDBEDREQTM 23:05 → MICUSO 09-10 07:35 → 7WST 09-10 12:45 → 8WST 09-10 23:31
PROVIDERS: ADMIT Internal Medicine; ATTEND Internal Medicine
DX: I63.9 Cerebral infarction, unspecified (principal); I50.33 Acute on chronic diastolic (congestive) heart failure; G93.41 Metabolic encephalopathy; E87.2 Acidosis; I69.354 Hemiplegia and hemiparesis following cerebral infarction affecting left non-dominant side; E87.1 Hypo-osmolality and hyponatremia; N39.0 Urinary tract infection, site not specified; I11.0 Hypertensive heart disease with heart failure; E11.65 Type 2 diabetes mellitus with hyperglycemia; E78.5 Hyperlipidemia, unspecified; E87.5 Hyperkalemia; E86.1 Hypovolemia; E66.9 Obesity, unspecified; E86.0 Dehydration; Z20.822 Contact with and (suspected) exposure to COVID-19; Z79.4 Long term (current) use of insulin; Z79.899 Other long term (current) drug therapy; Z68.31 Body mass index [BMI] 31.0-31.9, adult
CPT/HCPCS: 36415; 70496; 70551; 71045; 80048; 80053; 80061; 80305; 80320; 81003; 82962; 83036; 83605; 83721; 83880; 84439; 84443; 84484; 85025; 87635; 92610; 93005; 93306; 93880; 93970; 95816; 96365; 97162; 97167; 99285; C1893; J1630; J1650; J1815; J1956; J2060; J3490; J7030; J7060; J7070; G0480

== ENCOUNTER 2021-07-10 05:28 | Inpatient (IN) | payer MEDICARE, MEDICAID ==
[~2021-07-10] VITALS: Ht 154.9 cm; Wt 86.6 kg
[~2021-07-10 05:28] MED LIST changes: +AMLO10TA4 MT; +ASPI-1497 MT; -ATOR20TA PO; +BLOO-1465 MT; -CAPT1TAB7 PO; +FAMO-135 PO; +INSU100I28 SQ; +LANC1COM2 MC; +LIP40 MT; -METF-414 PO; +METF-415 MT
[2021-07-10 06:21] LABS: BASOPHILS % 0.7 % (0.0-2.0); EOSINOPHILS % 0.7 % (0.0-5.0); HEMATOCRIT. 33.8 % (36.0-48.0); HEMOGLOBIN. 11.2 g/dL (12.0-16.0); LYMPHOCYTES % 27.7 % (20.0-50.0); MEAN CORPUSCULAR HEMOGLOBIN 25.2 pg (28.0-32.0); MEAN CORPUSCULAR VOLUME 75.9 fL (81.0-99.0); MEAN PLATELET VOLUME 8.4 fl (7.4-10.4); MONOCYTES % 7.4 % (2.0-8.0); NEUTROPHILS % 63.5 % (40.0-76.0); PLATELET 227 x1000/uL (130-400); RED BLOOD CELL COUNT 4.45 mill/uL (4.2-5.4); RED CELL DISTRIBUTION WIDTH 14.2 % (11.6-14.6)
[2021-07-10 06:28] LABS: CHLORIDE 101 mEq/L (98-107)
[2021-07-10] MEDS ORDERED: ASPIRIN 325MG TABLET PO ONE (07:00)
[2021-07-10] MEDS ORDERED: CLOPIDOGREL 75MG TABLET PO ONE (07:00)
[2021-07-10] MEDS ORDERED: ASPIRIN 81MG TABLET PO SCH (13:00)
[2021-07-10] MEDS ORDERED: MAGNESIUM/ALUMINUM HYDROXIDE/SIMETHICONE 30ML UDC PO PRN (17:00)
[2021-07-10] MEDS ORDERED: ONDANSETRON HCL 4MG/2ML INJ IV PRN (17:00)
[2021-07-10] MEDS ORDERED: DOCUSATE SODIUM 100MG CAPSULE PO PRN (17:00)
[2021-07-10] MEDS ORDERED: ACETAMINOPHEN 325MG TABLET PO PRN (17:00)
[2021-07-10] MEDS ORDERED: DEXTROSE 50% WATER 50ML SYRINGE IV PRN (17:00)
[2021-07-10] MEDS ORDERED: GUAIFENESIN 200MG/10ML SUGAR FREE UDC PO PRN (17:00)
[2021-07-10] MEDS ORDERED: NA PHOS,M-B/NA PHOS,DI-BA ENEMA 118ML PR PRN (17:00)
[2021-07-10] MEDS ORDERED: DIPHENHYDRAMINE 50MG/ML VIAL IV PRN (17:00)
[2021-07-10] MEDS ORDERED: ACETAMINOPHEN 650MG SUPP PR PRN (17:00)
[2021-07-10] MEDS ORDERED: HYDROCODONE/ACETAMINOPHEN 5/325MG TABLET PO PRN (17:00)
[2021-07-10] MEDS ORDERED: LORAZEPAM 0.5MG TABLET PO PRN (17:00)
[2021-07-10] MEDS ORDERED: IPRATROPIUM/ALBUTEROL 0.5-3(2.5)MG/3ML NEB NEB PRN (17:00)
[2021-07-10] MEDS ORDERED: NALOXONE HCL 0.4MG/ML VIAL IV PRN (17:15)
[2021-07-10] MEDS: INSULIN LISPRO 100 UNITS/ML SUBCUT SCH ×2 (18:57→22:13)
[2021-07-10] MEDS: ENOXAPARIN 40MG/0.4ML SYR SUBCUT SCH (18:58)
[2021-07-10] MEDS: ATORVASTATIN CALCIUM 20MG TABLET PO SCH (21:00)
[2021-07-10] MEDS: FAMOTIDINE 20MG TABLET PO SCH (21:00)
[2021-07-10] MEDS: BLOOD SUGAR DIAGNOSTIC STRIP TEST SCH (21:41)
[2021-07-10 22:55] VITALS: BP 159/73
[2021-07-11] VITALS: BP 172/63
[2021-07-11 00:16] LABS: CREATINE KINASE 62 IU/L (26-192)
[2021-07-11 00:17] LABS: CREATINE KINASE MB FRACTION < 1.0 ng/mL (0.5-3.6)
[2021-07-11] MEDS: CLONIDINE 0.1MG TABLET PO PRN ×2 (00:57→09:12)
[2021-07-11 04:00] VITALS: BP 160/80
[2021-07-11 06:34] LABS: BASOPHILS % 0.8 % (0.0-2.0); EOSINOPHILS % 0.7 % (0.0-5.0); HEMATOCRIT. 32.7 % (36.0-48.0); HEMOGLOBIN. 11.2 g/dL (12.0-16.0); LYMPHOCYTES % 37.2 % (20.0-50.0); MEAN CORPUSCULAR HEMOGLOBIN 25.8 pg (28.0-32.0); MEAN CORPUSCULAR VOLUME 75.8 fL (81.0-99.0); MEAN PLATELET VOLUME 9.2 fl (7.4-10.4); NEUTROPHILS % 54.3 % (40.0-76.0); PLATELET 214 x1000/uL (130-400); RED BLOOD CELL COUNT 4.32 mill/uL (4.2-5.4)
[2021-07-11 06:46] LABS: CHLORIDE 101 mEq/L (98-107)
[2021-07-11] MEDS: INSULIN LISPRO 100 UNITS/ML SUBCUT SCH ×4 (07:04→21:00)
[2021-07-11] MEDS: BLOOD SUGAR DIAGNOSTIC STRIP TEST SCH ×4 (07:04→21:49)
[2021-07-11 07:08] LABS: CREATINE KINASE MB FRACTION < 1.0 ng/mL (0.5-3.6)
[2021-07-11 07:09] LABS: LDL CHOLESTEROL 141 mg/dL (5-100)
[2021-07-11 07:10] LABS: CREATINE KINASE 49 IU/L (26-192); T4 FREE 1.18 ng/dL (0.76-1.46)
[2021-07-11 07:11] LABS: HDL CHOLESTEROL 36 mg/dL (40-59)
[2021-07-11 08:00] VITALS: BP 170/83
[2021-07-11] MEDS: ASPIRIN 81MG TABLET PO SCH ×2 (09:11→09:22)
[2021-07-11] MEDS: CLOPIDOGREL 75MG TABLET PO SCH ×2 (09:11→09:22)
[2021-07-11 12:00] VITALS: BP 166/83
[2021-07-11 13:35] LABS: PROTHROMBIN TIME 10.9 sec (9.6-11.0)
[2021-07-11 16:00] VITALS: BP 170/65
[2021-07-11] MEDS: ENOXAPARIN 40MG/0.4ML SYR SUBCUT SCH (16:31)
[2021-07-11 20:00] VITALS: BP 184/71
[2021-07-11] MEDS: ATORVASTATIN CALCIUM 20MG TABLET PO SCH (21:00)
[2021-07-11] MEDS: FAMOTIDINE 20MG TABLET PO SCH (21:00)
[2021-07-11] MEDS: LORAZEPAM 2MG/ML CPJ IV PRN (21:15)
[2021-07-11] MEDS: HYDRALAZINE 20MG/ML VIAL IV PRN (21:30)
[2021-07-11] MEDS ORDERED: IOHEXOL-300 100 ML BOTTLE ONE (23:28)
[2021-07-12] VITALS: BP 147/69
[2021-07-12 07:37] LABS: EOSINOPHILS % 0.7 % (0.0-5.0); HEMATOCRIT. 32.8 % (36.0-48.0); HEMOGLOBIN. 11.2 g/dL (12.0-16.0); LYMPHOCYTES % 32.5 % (20.0-50.0); MEAN CORPUSCULAR HEMOGLOBIN 25.5 pg (28.0-32.0); MEAN PLATELET VOLUME 8.9 fl (7.4-10.4); MONOCYTES % 10.2 % (2.0-8.0); NEUTROPHILS % 55.6 % (40.0-76.0); PLATELET 216 x1000/uL (130-400); RED BLOOD CELL COUNT 4.37 mill/uL (4.2-5.4); RED CELL DISTRIBUTION WIDTH 14.3 % (11.6-14.6)
[2021-07-12] MEDS: BLOOD SUGAR DIAGNOSTIC STRIP TEST SCH ×4 (07:37→21:40)
[2021-07-12] MEDS: INSULIN LISPRO 100 UNITS/ML SUBCUT SCH ×4 (07:38→21:00)
[2021-07-12 08:00] VITALS: BP 145/68
[2021-07-12] MEDS: LORAZEPAM 2MG/ML CPJ IV PRN (09:23)
[2021-07-12 12:00] VITALS: BP 148/74
[2021-07-12 16:00] VITALS: BP 164/73
[2021-07-12] MEDS: ASPIRIN 81MG TABLET PO SCH (17:08)
[2021-07-12] MEDS: CLOPIDOGREL 75MG TABLET PO SCH (17:08)
[2021-07-12] MEDS: CLONIDINE 0.1MG TABLET PO PRN (17:10)
[2021-07-12] MEDS: ENOXAPARIN 40MG/0.4ML SYR SUBCUT SCH (17:10)
[2021-07-12 20:00] VITALS: BP 138/65
[2021-07-12] MEDS ORDERED: ATORVASTATIN CALCIUM 40MG TABLET PO SCH (21:00)
[2021-07-12] MEDS: FAMOTIDINE 20MG TABLET PO SCH (21:41)
[2021-07-12 23:54] LABS: CLARITY URINE CLEAR (CLEAR); COLOR URINE YELLOW (YELLOW); KETONES URINE 1+ (NEGATIVE); LEUKOCYTE ESTERASE URINE NEGATIVE (NEGATIVE); NITRITE URINE NEGATIVE (NEGATIVE); OCCULT BLOOD URINE NEGATIVE (NEGATIVE); PROTEIN URINE 1+ (NEGATIVE); SPECIFIC GRAVITY URINE 1.037 (1.005-1.030); UROBILINOGEN URINE 0.2 E.U./dL (0.2-1.0)
[2021-07-13] VITALS: BP 144/52
[2021-07-13 04:08] VITALS: BP 132/62
[2021-07-13] MEDS: BLOOD SUGAR DIAGNOSTIC STRIP TEST SCH ×3 (06:33→18:06)
[2021-07-13] MEDS: INSULIN LISPRO 100 UNITS/ML SUBCUT SCH ×3 (07:40→18:07)
[2021-07-13 08:00] VITALS: BP 170/77
[2021-07-13] MEDS ORDERED: ATEN50TA PO ×3 (08:27→12:47)
[2021-07-13] MEDS: ASPIRIN 81MG TABLET PO SCH (09:20)
[2021-07-13] MEDS: CLOPIDOGREL 75MG TABLET PO SCH (09:20)
[2021-07-13] MEDS: HYDRALAZINE 20MG/ML VIAL IV PRN (09:31)
[2021-07-13] MEDS: LORAZEPAM 2MG/ML CPJ IV PRN (10:13)
[2021-07-13 12:00] VITALS: BP 142/70
[2021-07-13] MEDS ORDERED: CLOP-31 MT (12:47)
[2021-07-13] MEDS ORDERED: ASPI-1497 MT (12:47)
[2021-07-13] MEDS ORDERED: AMLO10TA4 MT (12:47)
[2021-07-13] MEDS ORDERED: LIP40 MT (12:47)
[2021-07-13 16:00] VITALS: BP 145/79
[2021-07-13] MEDS: ENOXAPARIN 40MG/0.4ML SYR SUBCUT SCH (18:06)
[2021-07-13 20:00] VITALS: BP 148/67
== END 2021-07-13 21:15 | disposition home health service (06) | DRG 65 ==
LOC: ER 05:28 → MICUSO 06:58 → EDBEDREQTM 07:40 → EDBEDREQ 07:40 → 8WST 21:28
PROVIDERS: ADMIT Internal Medicine; ATTEND Internal Medicine
DX: I63.81 Other cerebral infarction due to occlusion or stenosis of small artery (principal); I50.32 Chronic diastolic (congestive) heart failure; E87.1 Hypo-osmolality and hyponatremia; E78.5 Hyperlipidemia, unspecified; I11.0 Hypertensive heart disease with heart failure; E11.65 Type 2 diabetes mellitus with hyperglycemia; D64.9 Anemia, unspecified; R32 Unspecified urinary incontinence; M47.812 Spondylosis without myelopathy or radiculopathy, cervical region; M48.02 Spinal stenosis, cervical region; F91.9 Conduct disorder, unspecified; E66.01 Morbid (severe) obesity due to excess calories; Z68.36 Body mass index [BMI] 36.0-36.9, adult; Z86.73 Personal history of transient ischemic attack (TIA), and cerebral infarction without residual deficits; Z79.4 Long term (current) use of insulin; Z79.84 Long term (current) use of oral hypoglycemic drugs; Z79.899 Other long term (current) drug therapy; Z88.0 Allergy status to penicillin; Z79.82 Long term (current) use of aspirin
CPT/HCPCS: 36415; 70360; 70551; 71045; 72141; 72146; 72148; 80048; 80053; 80061; 81003; 82550; 82553; 82962; 83036; 84439; 84443; 84484; 85025; 92610; 93005; 93306; 93880; 93970; 97162; 97166; 99291; J0360; J1650; J1815; J2060; Q9967